=== PATIENT | male | born 1965 | race Asian ===

== ENCOUNTER 2022-11-05 18:35 | Emergency (ER) | payer OTHER ==
[~2022-11-05] VITALS: Ht 170.2 cm; Wt 63.6 kg
[2022-11-05] MEDS ORDERED: METF-1211 PO (18:47)
[2022-11-05] MEDS ORDERED: ATOR10TA PO (18:47)
[2022-11-05] MEDS ORDERED: KETOROLAC TROMETHAMINE 30 MG/ML VIAL IM ONE (21:30)
[2022-11-05] MEDS ORDERED: ACETAMINOPHEN 325 MG TABLET PO ONE (21:30)
[2022-11-05] MEDS ORDERED: LIDOCAINE 5% TRANSDERMAL PATCH TD ONE (21:30)
[2022-11-05] MEDS ORDERED: LIDO700A15 TP (21:44)
[2022-11-05] MEDS ORDERED: IBUP-1492 PO (21:44)
[2022-11-05] MEDS ORDERED: BACL10TA PO (22:50)
[2022-11-05 23:08] VITALS: BP 103/70
[2022-11-06] MEDS ORDERED: BACL10TA PO (15:29)
[2022-11-06] MEDS ORDERED: IBUP-1492 PO (15:29)
[2022-11-06] MEDS ORDERED: LIDO700A15 TP (15:29)
== END 2022-11-05 23:13 | disposition home or self-care (01) ==
LOC: EMS 18:40
DX: S39.012A Strain of muscle, fascia and tendon of lower back, initial encounter (principal); E11.9 Type 2 diabetes mellitus without complications; E78.00 Pure hypercholesterolemia, unspecified; V89.2XXA Person injured in unspecified motor-vehicle accident, traffic, initial encounter; Y93.89 Activity, other specified; Y92.89 Other specified places as the place of occurrence of the external cause; Y99.8 Other external cause status
CPT/HCPCS: 99285; 72128; 72131; 96372; J1885